=== PATIENT | female | born 1975 | race Caucasian/White ===

== ENCOUNTER 2023-07-26 22:37 | Emergency (ER) | payer BC ==
[2023-07-26] MEDS ORDERED: EPINEPHrine 1 MG/ML SDV IM ONE (23:10)
[2023-07-26] MEDS ORDERED: diphenhydrAMINE 50 MG Cap PO ONE (23:19)
== END 2023-07-27 00:16 | disposition home or self-care (01) ==
LOC: DL.ED 22:37
DX: T78.1XXA Other adverse food reactions, not elsewhere classified, initial encounter (principal)
CPT/HCPCS: 99282; 99283; Q0163

== ENCOUNTER 2024-03-04 06:53 | Day surgery (SDC) | payer BC ==
[~2024-03-04 06:53] MED LIST: Midazolam 1 MG/ML 2 ML SDV ONE; fentaNYL 100 MCG/2 ML SDV ONE
[2024-03-04] MEDS: Dextrose 5%-0.45% NaCl 1,000 ML IV SCH (07:20)
[2024-03-04] MEDS: fentaNYL 100 MCG/2 ML SDV IV ONE ×2 (07:52→07:53)
[2024-03-04] MEDS: Midazolam 1 MG/ML 2 ML SDV IV ONE ×2 (07:53→07:54)
== END 2024-03-04 10:00 | disposition home or self-care (01) ==
LOC: DL.ENDO 06:53
PROVIDERS: ATTEND Internal Medicine Gastroenterology
DX: K20.0 Eosinophilic esophagitis (principal); K31.89 Other diseases of stomach and duodenum; K21.9 Gastro-esophageal reflux disease without esophagitis
CPT/HCPCS: 87077; J2250; J3010; J7042